=== PATIENT | female | born 1945 | race Caucasian/White ===

== ENCOUNTER 2022-03-26 13:00 | Outpatient (CLI) | payer MEDICARE, OTHER | END 2022-03-26 23:59 | disposition home or self-care (01) | LOC: WOU 13:00 | PROVIDERS: ATTEND Podiatrist Foot & Ankle Surgery | DX: M79.605 Pain in left leg (principal); M79.604 Pain in right leg; R60.0 Localized edema; Z99.3 Dependence on wheelchair | CPT/HCPCS: G0463 ==